=== PATIENT | female | born 1945 | race Caucasian/White ===

== ENCOUNTER 2021-07-16 18:47 | Inpatient (IN) | payer MEDICARE ==
[~2021-07-16] VITALS: Ht 160 cm; Wt 71.8 kg
[~2021-07-16 18:47] MED LIST: BLOOD PRESSURE MED; GABA300C PO; OXYC15TA3 PO; OXYC5TAB98 PO
[2021-07-16] MEDS ORDERED: DEXAMETHASONE 4 MG/ML, 1ML ONE (19:29)
[2021-07-16] MEDS ORDERED: ALBUTEROL/IPRATROPIUM 2.5MG/0.5MG, 3 ML ONE (19:30)
[2021-07-16] MEDS ORDERED: ACETAMINOPHEN 500 MG TABLET PO ONE (19:30)
[2021-07-16] MEDS ORDERED: DEXAMETHASONE 4 MG/ML, 1ML IV ONE (19:30)
[2021-07-16] MEDS ORDERED: SODIUM CHLORIDE 0.9% 1,000ML IVBOLUS ONE (19:30)
[2021-07-16] MEDS ORDERED: ALBUTEROL/IPRATROPIUM 2.5MG/0.5MG, 3 ML NPPB ONE (19:30)
[2021-07-16] MEDS ORDERED: ACETAMINOPHEN 500 MG TABLET ONE (19:30)
[2021-07-16 19:37] LABS: BASOPHILS % (AUTO) 1 % (0-1); EOSINOPHILS % (AUTO) 0 % (1-7); LYMPHOCYTES % (AUTO) 15 % (22-44); MEAN CORPUSCULAR HEMOGLOBIN 29.3 pg (27.0-34.8); MEAN CORPUSCULAR HGB CONC 32.6 g/dL (32.4-35.8); MEAN PLATELET VOLUME 8.1 fL (7.4-10.4); MONOCYTES % (AUTO) 7 % (2-9); NEUTROPHILS % (AUTO) 77 % (42-75); PLATELET COUNT 299 x10^3/uL (130-400); RED BLOOD COUNT 4.92 x10^6/uL (3.82-5.3); RED CELL DISTRIBUTION WIDTH 15.3 % (9.6-15.2)
[2021-07-16 19:49] LABS: ALANINE AMINOTRANSFERASE 23 U/L (12-78); ALBUMIN 2.9 g/dL (3.4-5.0); ANION GAP 4 mmol/L (5-15); CALCIUM 8.2 mg/dL (8.5-10.1); CHLORIDE 102 mmol/L (98-107); CREATININE 0.72 mg/dL (0.55-1.02)
--- NOTE | 2021-07-16 19:50 | NUR ---
PT SITTING UP IN BED AND CHECKED IN, AND PT ON O2 NC 2LPM FOR LOW O2 SATS IN TRIAGE. MD TO BEDSIDE TO EVAL PT AND ORDERS RECEIVED. LAB TEAM TO BEDSIDE AND GAY BLOOD AND BLOOD CULTURES X2. PORTABLE CXRY DONE, AND PIV STARTED TO LEFT AC X1 ATTEMPT WITH 20G CATH. FLUSHED EASILY, AND 1 LITER NS HUNG TO RUN OVER AN HOUR, AND MEDS GIVEN PER MD ORDER, AND NEB TREATMENT STARTED. PT HAPPY AND IN GOOD SPIRITS AND CALM AND COOPERATIVE.
[2021-07-16 19:54] LABS: ALKALINE PHOSPHATASE 102 U/L (45-117); BILIRUBIN,TOTAL 0.5 mg/dL (0.2-1.0); TOTAL PROTEIN 7.1 g/dL (6.4-8.2); TROPONIN I 0.017 ng/mL (0.000-0.045)
[2021-07-16] MEDS ORDERED: MORPHINE SULFATE 4 MG/ML, 1ML ONE ×2 (20:35→22:17)
[2021-07-16] MEDS: MORPHINE SULFATE 4 MG/ML, 1ML IVPush PRN ×2 (20:42→22:21)
--- NOTE | 2021-07-16 21:09 | NUR ---
PT MEDICATED PER MAR FOR PAIN, NAD, DENIES ADDITIONAL QUESTIONS OR NEEDS, STATES SHE WANTS TO GO HOME TONIGHT. BED IN [facility], RAILS ENGAGED, CALL LIGHT ON LAP, TM.
[2021-07-16] MEDS ORDERED: AZITHROMYCIN 500 MG in SODIUM CHLORIDE 0.9% 250 ML IV ONE (22:00)
[2021-07-16] MEDS ORDERED: CEFTRIAXONE 1,000 MG in DEXTROSE 5% 50 ML IVPB ONE (22:00)
[2021-07-16] MEDS ORDERED: OMNIPAQUE 350 MG/ML, 100ML BOTTLE ONE (22:00)
[2021-07-16] MEDS ORDERED: LORazepam 2 MG/ML, 1ML IV ONE (22:16)
[2021-07-16] MEDS ORDERED: LORazepam 2 MG/ML, 1ML ONE (22:18)
[2021-07-16] MEDS ORDERED: OXYC15TA60 PO (22:46)
[2021-07-16] MEDS ORDERED: GABA600T7 PO (22:46)
[2021-07-16] MEDS ORDERED: LOTREL PO (22:46)
[2021-07-16] MEDS ORDERED: ALBUTEROL (22:50)
[2021-07-16] MEDS ORDERED: AMLO1CAP54 PO (22:50)
[2021-07-16 23:24] VITALS: BP 118/73
[2021-07-16] MEDS ORDERED: BENZONATATE 100 MG CAPSULE PO PRN (23:30)
[2021-07-16] MEDS ORDERED: KETOROLAC 30 MG/1 ML IV PRN (23:30)
[2021-07-16] MEDS ORDERED: LABETALOL 5MG/ML, 20ML IVPush PRN (23:30)
[2021-07-16] MEDS ORDERED: ONDANSETRON 2MG/ML, 2ML IVPush PRN (23:30)
[2021-07-16] MEDS ORDERED: MELATONIN 5 MG TABLET PO PRN (23:30)
[2021-07-16] MEDS ORDERED: POLYETHYLENE GLYCOL 17 GM PACKET PO PRN (23:30)
[2021-07-16] MEDS ORDERED: ACETAMINOPHEN 325 MG TABLET PO PRN (23:30)
[2021-07-16] MEDS: OXYcodone IR 5MG TABLET PO PRN (23:52)
[2021-07-16] MEDS: ENOXAPARIN 40 MG/0.4 ML SQ SCH (23:53)
[2021-07-17 00:23] VITALS: BP 118/73
[2021-07-17 08:19] VITALS: BP 117/68
[2021-07-17] MEDS: OXYcodone IR 5MG TABLET PO PRN ×4 (10:12→23:53)
[2021-07-17] MEDS ORDERED: CAPSAICIN CRM 0.075%, 60GM TP PRN (11:00)
[2021-07-17 11:11] LABS: MICROSCOPIC NOT IND
[2021-07-17 13:03] VITALS: BP 132/76
[2021-07-17] MEDS: FUROSEMIDE 20 MG/2 ML IV SCH (19:21)
[2021-07-17 20:25] VITALS: BP 120/72
[2021-07-17] MEDS: ENOXAPARIN 40 MG/0.4 ML SQ SCH (23:53)
[2021-07-18] VITALS: BP 134/80
[2021-07-18 04:31] LABS: BASOPHILS % (AUTO) 0 % (0-1); EOSINOPHILS % (AUTO) 0 % (1-7); LYMPHOCYTES % (AUTO) 17 % (22-44); MEAN CORPUSCULAR HEMOGLOBIN 29.6 pg (27.0-34.8); MEAN CORPUSCULAR HGB CONC 32.5 g/dL (32.4-35.8); MONOCYTES % (AUTO) 7 % (2-9); NEUTROPHILS % (AUTO) 75 % (42-75); PLATELET COUNT 266 x10^3/uL (130-400); RED BLOOD COUNT 4.71 x10^6/uL (3.82-5.3); RED CELL DISTRIBUTION WIDTH 14.9 % (9.6-15.2)
[2021-07-18 04:40] LABS: ALBUMIN 2.5 g/dL (3.4-5.0); ANION GAP 3 mmol/L (5-15); CALCIUM 8.3 mg/dL (8.5-10.1); CHLORIDE 103 mmol/L (98-107)
[2021-07-18 04:43] LABS: ALANINE AMINOTRANSFERASE 23 U/L (12-78); ALKALINE PHOSPHATASE 88 U/L (45-117); BILIRUBIN,TOTAL 0.5 mg/dL (0.2-1.0); CREATININE 0.56 mg/dL (0.55-1.02); TOTAL PROTEIN 6.4 g/dL (6.4-8.2)
[2021-07-18] MEDS: OXYcodone IR 5MG TABLET PO PRN ×4 (06:22→19:52)
[2021-07-18 07:57] VITALS: BP 138/70
[2021-07-18] MEDS: FUROSEMIDE 20 MG/2 ML IV SCH ×2 (08:32→09:49)
[2021-07-18 15:59] VITALS: BP 124/69
[2021-07-18] MEDS ORDERED: CAPS57CR2 TP (17:17)
[2021-07-18 19:11] VITALS: BP 126/73
== END 2021-07-18 20:11 | disposition home or self-care (01) | DRG 189 ==
LOC: ED 21:32 → EDIP 22:05 → 4EST 23:16
PROVIDERS: ADMIT Internal Medicine; ATTEND Hospitalist
PROC: 0T9B70Z Drainage of Bladder with Drainage Device, Via Natural or Artificial Opening (ICD-10-PCS; principal; 2021-07-17)
DX: J96.21 Acute and chronic respiratory failure with hypoxia (principal); B34.9 Viral infection, unspecified; G89.29 Other chronic pain; I10 Essential (primary) hypertension; F32.9 Major depressive disorder, single episode, unspecified; Z96.651 Presence of right artificial knee joint; R50.9 Fever, unspecified; Z20.822 Contact with and (suspected) exposure to COVID-19; M40.204 Unspecified kyphosis, thoracic region; Z89.611 Acquired absence of right leg above knee; Z90.49 Acquired absence of other specified parts of digestive tract; Z99.3 Dependence on wheelchair; Z89.511 Acquired absence of right leg below knee
CPT/HCPCS: 36415; 71045; 71275; 80053; 81003; 83605; 83880; 84145; 84484; 85025; 87040; 93005; 93306; 96374; 99291; G0378; J0456; J0696; J1100; J1650; J1885; Q9967; U0005; J1940; J2060; J2270; J7030; J7050; U0003